=== PATIENT | male | born 1950 | race Caucasian/White ===

== ENCOUNTER 2022-10-20 07:10 | Day surgery (SDC) | payer OTHER ==
[~2022-10-20] VITALS: Ht 177.8 cm; Wt 105.1 kg
[~2022-10-20 07:10] MED LIST: CHLO25 PO
[2022-10-20] MEDS ORDERED: METF500 PO (07:46)
[2022-10-20] MEDS ORDERED: Amlodipine Bes2.5 MG PO (07:46)
[2022-10-20] MEDS ORDERED: LOSA25 PO (07:48)
[2022-10-20] MEDS ORDERED: METO25 (07:48)
[2022-10-20] MEDS ORDERED: CREON DR 12,001 EACH PO (07:49)
[2022-10-20] MEDS ORDERED: INSULANI (07:49)
--- NOTE | 2022-10-20 07:56 | NUR ---
10/20/22 0756 Marlene Jha IN AT 0744 JAZLYN IN AT [id number]
[2022-10-20] MEDS ORDERED: Aspir 8181 MG PO (08:06)
== END 2022-10-20 09:10 | disposition home or self-care (01) ==
LOC: ORSCSDS 07:10
PROVIDERS: Ophthalmology
PROC: 08RK3JZ Replacement of Left Lens with Synthetic Substitute, Percutaneous Approach (ICD-10-PCS; principal; 2022-10-20 08:30)
DX: H25.12 Age-related nuclear cataract, left eye (principal); Z96.1 Presence of intraocular lens; I10 Essential (primary) hypertension; E11.9 Type 2 diabetes mellitus without complications; Z79.84 Long term (current) use of oral hypoglycemic drugs; Z79.4 Long term (current) use of insulin; Z79.899 Other long term (current) drug therapy
CPT/HCPCS: 82947; J2001; J2250; J3010; J3301; J7040; V2632